=== PATIENT | male | born 1990 | race African-American/Black ===

== ENCOUNTER 2018-06-21 04:02 | Emergency (ER) | payer SELFPAY ==
[~2018-06-21] VITALS: Ht 182.9 cm; Wt 109.0 kg
[2018-06-21 04:04] VITALS: BP 150/90
== END 2018-06-21 08:59 | disposition left against medical advice (07) ==
LOC: ER 04:18
DX: Z53.21 Procedure and treatment not carried out due to patient leaving prior to being seen by health care provider (principal); R19.7 Diarrhea, unspecified; R11.2 Nausea with vomiting, unspecified